=== PATIENT | female | born 1975 | race African-American/Black ===

== ENCOUNTER 2020-03-10 12:57 | Outpatient (CLI) | payer BC, SELFPAY ==
--- NOTE | 2020-03-10 13:42 | ECG_ITS ---
Measurements Intervals [place] Rate: 76 P: 58 RI: 182 QRS: 36 QRSD: 82 T: 17 QT: 361 QTc: 406 Interpretive Statements SINUS RHYTHM NORMAL ECG Electronically Signed On 03-10-2020 13:58:50 CDT by Michele Centeno D.O.
== END 2020-03-10 12:58 | disposition home or self-care (01) ==
PROVIDERS: Visit Provider Anesthesiology
DX: E78.00 Pure hypercholesterolemia, unspecified (principal)
CPT/HCPCS: 93005

== ENCOUNTER 2020-03-11 07:55 | Outpatient (RCR) | payer BC, SELFPAY ==
[2020-03-10 13:19] LABS: Hematocrit 21.6 % (37.0-47.0)
[2020-03-10 13:22] LABS: Hemoglobin 5.6 g/dL (12.0-15.0)
[2020-03-11] VITALS (9 sets, daily range): BP systolic 119–144; BP diastolic 69–91; PULSE 84–94; RESP 12–16; TEMP 36.9–37.6; O2SAT 100
[2020-03-11] MEDS: ACETAMINOPHEN 325 MG TABLET 650 MG PO (08:55)
--- NOTE | 2020-03-11 09:19 | PC.NURSE ---
0900-As this is the first time pt has received blood, orders received from MD for medications and blood began at less than half of the normal starting rate (30 ml/hr) to insure any problems are caught early. No itching or other adverse reactions noted by pt. Will continue to monitor.
== END 2020-06-08 23:59 | disposition home or self-care (01) ==
LOC: ANHCPCTRAN 07:55
PROVIDERS: Visit Provider Obstetrics & Gynecology
DX: D50.9 Iron deficiency anemia, unspecified (principal)
CPT/HCPCS: 36415; 36430; 85014; 85018; 86850; 86900; 86901; 86920; A9270; P9016

== ENCOUNTER 2020-03-15 14:02 | Outpatient (CLI) | payer BC, SELFPAY ==
[2020-03-15 14:22] LABS: Hematocrit 30.8 % (37.0-47.0); Hemoglobin 8.7 g/dL (12.0-15.0)
== END 2020-03-15 14:03 | disposition home or self-care (01) ==
PROVIDERS: Referring Provider Obstetrics & Gynecology; Visit Provider Anesthesiology
DX: D50.9 Iron deficiency anemia, unspecified (principal)
CPT/HCPCS: 36415; 85014; 85018

== ENCOUNTER 2020-03-17 00:17 | Outpatient (CLI) | payer BC, SELFPAY ==
[2020-03-17 17:33] LABS: SARS-CoV-2 RNA PCR Negative
== END 2020-03-17 00:18 | disposition home or self-care (01) ==
LOC: ANHCOVIDDT 00:17
PROVIDERS: Visit Provider Obstetrics & Gynecology
DX: Z01.812 Encounter for preprocedural laboratory examination (principal); Z20.828 Contact with and (suspected) exposure to other viral communicable diseases
CPT/HCPCS: 87635; C9803; U0003

== ENCOUNTER 2020-03-29 15:02 | Outpatient (CLI) | payer BC, SELFPAY ==
[2020-03-29 15:47] LABS: Hematocrit 32.9 % (37.0-47.0); Hemoglobin 9.7 g/dL (12.0-15.0)
== END 2020-03-29 15:03 | disposition home or self-care (01) ==
PROVIDERS: Visit Provider Obstetrics & Gynecology
DX: D64.9 Anemia, unspecified (principal)
CPT/HCPCS: 36415; 85014; 85018

== ENCOUNTER 2020-03-31 00:35 | Outpatient (CLI) | payer BC, SELFPAY ==
[2020-03-31 17:34] LABS: SARS-CoV-2 RNA PCR Negative
== END 2020-03-31 00:36 | disposition home or self-care (01) ==
LOC: ANHCOVIDDT 00:35
PROVIDERS: Visit Provider Obstetrics & Gynecology
DX: Z01.812 Encounter for preprocedural laboratory examination (principal); Z11.59 Encounter for screening for other viral diseases
CPT/HCPCS: 87635; C9803; U0003

== ENCOUNTER 2020-04-02 16:31 | Inpatient (IN) | payer BC, SELFPAY ==
[2020-03-09 10:07] VITALS: BMI 31.7
--- NOTE | 2020-03-09 16:10 | PC.NURSE ---
1000: Patient has chronic anemia and has a scheduled blood transfusion on 03-11-2020. Patient instructed to get an H&H and type and screen done after her transfusion for surgery.
[2020-04-02] VITALS (18 sets, daily range): BP systolic 102–126; BP diastolic 63–91; PULSE 77–109; RESP 10–25; TEMP 36.8–37; O2SAT 96–100
--- NOTE | 2020-04-02 07:44 | WPDANESEPPF ---
Anes - Initial Pre Proc Eval Procedure: Operation Date: 04/02/20 13:00 Proposed Procedures p Total Abdominal Hysterectomy - Ranjeet Kaminski MD Date/Time: 04/02/20 07:44 Surgeon: Ranjeet Kaminski MD Pre Op Diagnosis: Uterine Fibroids Patient Data Age: 45 Gender: F Height: 1.63 m Weight: 83.91 kg Allergies Allergy/AdvReac Type Severity Reaction Status Date / Time No Known Allergies Verified 03/26/20 13:42 Home Medications Medication Instructions Recorded Confirmed Type cholecalciferol (vitamin D3) 125 mcg PO DAILY 03/09/20 03/26/20 History [Vitamin D3] iron,carbon,[id number] 1 tablet PO DAILY 03/09/20 03/26/20 History [Ferralet 90 Dual-Iron Delivery] levothyroxine 125 mcg PO DAILY 03/09/20 03/26/20 History pravastatin 20 mg PO HS 03/09/20 03/26/20 History ECG: Date of Service: 03/10/20 Procedure(s): CA 12 lead EKG Accession Number(s): [id number] cc: ~ Measurements Intervals [place] Rate: 76 P: 58 NV: 182 QRS: 36 QRSD: 82 T: 17 QT: 361 QTc: 406 Interpretive Statements SINUS RHYTHM NORMAL ECG Electronically Signed On 03-10-2020 13:58:50 CDT by Michele Centeno D.O. Dictated By: Michele Centeno DO 03/10/20 1349 Patient hx anesthesia problems: none Family hx anesthesia problems: none PMFSH Past Medical History Medical History (Updated 04/02/20 @ 07:45 by Tray Jeffery MD) Abnormal uterine bleeding Anemia Endometriosis Hypercholesterolemia Hypothyroidism Obesity Social History Social History Smoking status: Never smoker Gender identity (if verbalized by the patient): Female Spiritual care concerns: No Anes - Eval Final PreProcedure Day of Procedure 04/02/20 07:44 Patient weight: obese Heart: regular rate and rhythm Lungs: clear to auscultation and normal air movement Airway: Mallampati scale class II Neurological: alert and oriented Last oral intake: >/= 8 hours ASA classification: III Emergent: no Anesthetic plan: proceed Anesthesia type and monitoring: general ETT Informed Consent: The patient's anesthetic plan and its attendant risks and benefits were discussed with the patient/family/POA. Questions were solicited and answers provided to the satisfaction of the patient/family/POA.
--- NOTE | 2020-04-02 11:51 | PM.IMHP ---
H&P: HPI History of Present Illness Chief complaint: Uterine Fibroids Narrative: Jennifer Painting is a 45 year old female A3 with a long history of fibroids, menorrhagia and anemia. Patient s/p recent blood transfusion 3 weeks ago and iron infusion. no bleeding since. Review of Systems Constitutional: Constitutional: Reports fatigue and Reports lethargy Gastrointestinal: Gastrointestinal: Reports bloating PMFSH Past Medical History Medical History (Updated 04/02/20 @ 11:55 by Ranjeet Kaminski MD) Abnormal uterine bleeding Anemia Ectopic Endometriosis Fibroids Hypercholesterolemia Hypothyroidism Obesity Surgical History Surgical History History of laparoscopy Status post myomectomy Social History Social History Smoking status: Never smoker Gender identity (if verbalized by the patient): Female Spiritual care concerns: No Meds Home Medications and Allergies Home Medications Medication Instructions Recorded Confirmed Type cholecalciferol (vitamin D3) 125 mcg PO DAILY 03/09/20 03/26/20 History [Vitamin D3] iron,carbon,[id number] 1 tablet PO DAILY 03/09/20 03/26/20 History [Ferralet 90 Dual-Iron Delivery] levothyroxine 125 mcg PO DAILY 03/09/20 03/26/20 History pravastatin 20 mg PO HS 03/09/20 03/26/20 History Allergies Allergy/AdvReac Type Severity Reaction Status Date / Time No Known Allergies Verified 03/26/20 13:42 Exam Const: General: no acute distress Resp: Auscultation: clear to auscultation bilaterally GI: Other: uterus at umbilicus : External Female Exam: normal external appearance Assessment and Plan Assessment and plan (1) Endometriosis: Code(s): N80.9 - Endometriosis, unspecified Status: Acute (2) Fibroids: Code(s): D21.9 - Benign neoplasm of connective and other soft tissue, unspecified Status: Acute Assessment and Plan: scheduled for an abdominal hysterectomy. Risk and benefits reviewed with patient including and no limited to bleeding infection trauma to surrounding organs, anesthesia.
[2020-04-02 12:14] LABS: Hematocrit 35.7 % (37.0-47.0); Hemoglobin 10.4 g/dL (12.0-15.0)
[2020-04-02] MEDS: ceFAZolin 2 GM/D5W 50 ML 2 GM/50 ML BAG IVPB (12:51)
[2020-04-02] MEDS: LACTATED RINGERS 1,000 ML 30 ML IV CONT ×3 (16:26→18:54)
[2020-04-02 17:00] LABS: Hemoglobin 7.3 g/dL (12.0-15.0)
--- NOTE | 2020-04-02 18:21 | SUR.PHASEI ---
1814 DR. ADAMES CALLED ON CELL TO REPORT LABS.
--- NOTE | 2020-04-02 18:28 | SUR.PHASEI ---
182 DR. ADAMES PAGED RE: LAB RESULTS. 1827 DR. ADAMES CELL CALLED RE: LAB RESULTS.
--- NOTE | 2020-04-02 18:45 | SUR.PHASEI ---
DR. MAYO CALLED AND OKAY'D FOR PT TO GO TO THE FLOOR; NO INTERVENTIONS ORDERED.
--- NOTE | 2020-04-02 19:05 | SUR.PHASEI ---
[employer] [employer]INCIPAL CALLED PT'S PAIN -05/17; TOLD MAY CONTINUE GIVING DILAUDID TO MAX OF 2 MG.
--- NOTE | 2020-04-02 19:35 | OBPPTRN ---
Patient transferred to post room #291 via bed. Support person present. Oriented to unit, room, information board, rooming in, admission packet and security measures. Patient verbalizes understanding.
[2020-04-02] MEDS: DEXTROSE 5%/0.45% SOD CHL 1,000 ML 125 ML IV CONT (20:10)
[2020-04-02] MEDS: SENNA/DOCUSATE SODIUM TABLET 2 TAB PO (22:14)
[2020-04-03] MEDS: IBUPROFEN 600 MG TABLET PO ×3 (03:37→19:32)
[2020-04-03] MEDS: SIMETHICONE 80 MG TAB.CHEW PO ×7 (03:40→22:44)
[2020-04-03 04:44] VITALS: BP 98/57; PULSE 96; RESP 18; TEMP 37
[2020-04-03 07:11] VITALS: BP 102/55; PULSE 105; PULSE 96; RESP 16; RESP 18; TEMP 37.4; O2SAT 96; O2SAT 98
[2020-04-03] MEDS: LEVOTHYROXINE SODIUM 125 MCG TABLET PO (07:11)
--- NOTE | 2020-04-03 09:31 | WPDANESPN ---
Anes - Prog Note Post-Op Date/Time: 04/03/20 09:31 Cardiovascular status: normal Respiratory status: normal Airway patency: baseline Mental status: baseline Post-Op hydration status: normal Vital Signs: Last Vital Signs Temp 37.0 C 04/03/20 04:44 Pulse 96 04/03/20 04:44 Resp 18 04/03/20 04:44 BP 98/57 L 04/03/20 04:44 Pulse Ox 96 04/02/20 19:10 Pain Score (VAS): 0/10. Patient resting in bed at time of assessment. Pain relief with PRN meds. Support person at bedside. I/O: Intake & Output 04/02/20 04/03/20 04/03/20 23:59 07:59 15:59 Intake Total 1000 600 Output Total 400 950 Balance 600 -350 Laboratory Tests 04/02/20 16:49 04/02/20 04/02/20 04/02/20 11:30 11:30 16:49 Hgb 10.4 L 7.3 L D Hct 35.7 L 25.0 L Blood Type O Positive Antibody Screen Negative Post-procedural complaints: none Patient Feedback: Patient satisfied with anesthetic care.
--- NOTE | 2020-04-03 10:39 | PM.GYNPNOP ---
DRIVER OPERATOR - A/P Postoperative Procedures: Procedures Operation Date: 04/02/20 13:00 Actual Procedures Side Surgeon p Total Abdominal Hysterectomy w/ extensive lysis of adhesions, bilateral salpingectomy, right oopherectomy Not Applicable Ranjeet Kaminski MD Postoperative day: 1 Postoperative status: doing well and anemia (Hb last pm 7.3 (prior to surg 10 but had been 5-6 for months without sx)) Postoperative plan: routine post-op care and other (H/H attempted at 5:30 but not done due to nausea; instruced RN to draw now at 10:30) Time Spent With Patient Time: Total time spent is greater than 50% in coordination of care (as documented) at patient's floor/unit and/or counseling patient: Time with patient: less than 15 minutes DRIVER OPERATOR- PN:Subj Post-Op Subjective Date/time seen: 04/03/20 10:39 Subjective: patient reports feeling better, pain is well controlled and patient reports nausea Exam GI: Other: abdomen soft, nt, nd bandage removed inc c/d/i with minimal oozing at base DRIVER OPERATOR - PN: Obj Data Vital Signs Vital Signs: Vital Signs - 24 hr 04/02/20 12:37 04/02/20 16:26 04/02/20 16:50 Temperature 98.3 F Pulse Rate 78 96 80 Respiratory Rate 18 12 16 Blood Pressure 108/89 109/73 114/69 Pulse Oximetry 100 100 100 04/02/20 17:05 04/02/20 17:24 04/02/20 17:35 Temperature Pulse Rate 96 77 92 Respiratory Rate 17 17 13 Blood Pressure 102/63 102/63 115/68 Pulse Oximetry 99 100 100 04/02/20 17:56 04/02/20 18:10 04/02/20 18:25 Temperature Pulse Rate 98 92 94 Respiratory Rate 19 11 L 22 H Blood Pressure 118/71 118/77 124/91 H Pulse Oximetry 100 97 96 04/02/20 18:40 04/02/20 18:55 04/02/20 19:10 Temperature Pulse Rate 109 H 107 H 109 H Respiratory Rate 25 H 19 10 L Blood Pressure 126/86 122/81 119/77 Pulse Oximetry 96 97 96 04/02/20 20:07 04/02/20 20:15 04/02/20 20:30 Temperature 98.6 F Pulse Rate 97 98 94 Respiratory Rate 17 Blood Pressure 112/78 122/83 120/85 Pulse Oximetry 04/02/20 21:00 04/02/20 22:00 04/02/20 23:00 Temperature 98.4 F Pulse Rate 107 H 105 H 88 Respiratory Rate 16 Blood Pressure 120/81 112/79 110/72 Pulse Oximetry 04/03/20 04:44 Temperature 98.6 F Pulse Rate 96 Respiratory Rate 18 Blood Pressure 98/57 L Pulse Oximetry Intake/Output Intake/Output: Intake & Output 03/31/20 04/01/20 04/02/20 04/03/20 23:59 23:59 23:59 23:59 Intake Total 1050 600 Output Total 400 950 Balance 650 -350 Meds/Results Medications: Active Medications Generic Name Dose Route Start Last Admin Trade Name Freq PRN Reason Stop Dose Admin Hydrocodone Bitart/Acetaminophen 1 tab 04/02/20 16:31 04/03/20 10:34 [place] 5-325 Mg PO 1 tab Q3H PRN Administration Pain Rated 5 or Less Hydrocodone Bitart/Acetaminophen 1 tab 04/02/20 16:31 [place] 10-325 Mg PO Q3H PRN Pain Rated 6 or Greater Fentanyl Citrate 25 mcg 04/02/20 07:30 04/02/20 18:30 Sublimaze IV PUSH 25 mcg Q2M PRN Administration Pain Hydromorphone HCl 0.25 mg 04/02/20 07:30 04/02/20 19:05 Dilaudid Inj IV PUSH 0.25 mg Q5M PRN Administration Pain Lactated Ringer's 1,000 mls @ 30 mls/hr 04/02/20 07:30 04/02/20 16:26 Lr - Lactated Ringers Iv IV CONT 30 mls/hr .Q24H AGGIE Administration Lactated Ringer's 1,000 mls @ 30 mls/hr 04/02/20 07:30 04/02/20 18:54 Lr - Lactated Ringers Iv IV CONT 30 mls/hr .Q24H AGGIE Administration Dextrose/Sodium Chloride 1,000 mls @ 125 mls/hr 04/02/20 16:35 04/02/20 20:10 Dextrose 5% Sodium Chloride 0.45% IV CONT 125 mls/hr .Q8H AGGIE Administration Ibuprofen 600 mg 04/02/20 16:31 04/03/20 03:37 Motrin PO 600 mg Q6H PRN Administration Cramping Levothyroxine Sodium 125 mcg 04/03/20 06:30 04/03/20 07:11 Synthroid PO 125 mcg DAILY@0630 AGGIE Administration Morphine Sulfate 4 mg 04/02/20 16:31 Morphine Sulfate Inj IV PUSH Q4H PRN Severe breakthrough
[2020-04-03 11:25] LABS: Basophils Percent Auto 0.1 % (0.2-1.2); Hematocrit 21.4 % (37.0-47.0); Immature Granulocyte Absolute 0.05 K/mm3 (0.00-0.031); Immature Granulocyte Percent A 0.4 % (0-0.5); Lymphocytes Absolute Auto 0.96 K/mm3 (0.9-3.2); Lymphocytes Percent Auto 7.8 % (18.3-44.2); Mean Corpuscular HGB Conc 29.4 g/dl (32-36); Mean Corpuscular Hemoglobin 22.9 pg (26-34); Mean Corpuscular Volume 77.8 fl (80-100); Mean Platelet Volume 10.5 fl (7.4-10.4); Monocytes Absolute Auto 0.8 K/mm3 (0.1-0.6); Monocytes Percent Auto 6.7 % (2.6-8.5); Neutrophils Absolute Auto 10.5 K/mm3 (1.3-6.7); Platelet Count Result 238 k/mm3 (150-375); Red Blood Count 2.75 M/mm3 (4.2-5.4); Red Cell Distribution Width 26.2 % (11.5-14.5); White Blood Count 12.3 K/mm3 (4.5-10.0)
[2020-04-03 11:26] LABS: Potassium 3.8 mmol/L (3.4-5.0)
[2020-04-03 11:35] LABS: Hemoglobin 6.3 g/dL (12.0-15.0)
[2020-04-03 11:41] LABS: Blood Urea Nitrogen 8 mg/dL (7-17); Calcium 8.1 mg/dL (8.4-10.2); Carbon Dioxide 26 mmol/L (22-30); Chloride 103 mmol/L (98-107); Estimated CRCL calculation 80 ml/min; Estimated Glomerular Filt Rate > 60; Glucose 126 mg/dL (65-105); Sodium 132 mmol/L (137-145)
[2020-04-03 12:40] LABS: Hypochromasia 3+ (NORMAL)
[2020-04-03 12:41] LABS: Ovalocytes 2+ (NORMAL); Platelet Estimate Adequate (Adequate)
[2020-04-03 16:30] VITALS: BP 110/66; PULSE 81; RESP 16; TEMP 37.1; O2SAT 98
[2020-04-03] MEDS: POLYSACCHARIDE IRON COMPLEX 150 MG CAPSULE PO (16:30)
--- NOTE | 2020-04-03 19:17 | PC.NURSE ---
1130 pt wants to try to get up to bathroom. Sat her on the side of bed. She felt light headed and dizzy. Called out for assistance from another RN. Laid pt back down in bed. VS @ 1135 B/P 92/51, HR 86, PO2 100. Applied a cool washcloth to neck. She started to feel better. Informed pt that she should eat and we would try again later with the [employer]. She V/D'd. VS @ 1145 B/P 105/65, HR 88, PO2 96 1330 used [employer] to transport pt to the Bathroom she was weak but did well. She voided but missed the hat there was 100ccs in the hat. returned her to bed and she is resting well. 1600 Used [employer] again to the bathroom. Pt did much better this time. She voided and missed the hat again. Returned her to bed she is resting well.
[2020-04-03 19:35] VITALS: BP 112/72; PULSE 91; RESP 16; TEMP 37.4; O2SAT 100
[2020-04-03] MEDS: SENNA/DOCUSATE SODIUM TABLET 2 TAB PO (22:44)
[2020-04-04] MEDS: IBUPROFEN 600 MG TABLET PO ×2 (01:35→08:04)
[2020-04-04] MEDS: SIMETHICONE 80 MG TAB.CHEW PO ×3 (01:35→08:05)
--- NOTE | 2020-04-04 03:50 | PM.GYNPNOP ---
HEADING MAKER - A/P Assessment and plan (1) Anemia: Code(s): D64.9 - Anemia, unspecified Status: Chronic Assessment and Plan: continue iron BID for next 2 months tolerating without dizziness declines transfusion Postoperative Procedures: Procedures Operation Date: 04/02/20 13:00 Actual Procedures Side Surgeon p Total Abdominal Hysterectomy w/ extensive lysis of adhesions, bilateral salpingectomy, right oopherectomy Not Applicable Ranjeet Kaminski MD Postoperative day: 2 Postoperative status: doing well Postoperative plan: routine post-op care and discharge Time Spent With Patient Time: Total time spent is greater than 50% in coordination of care (as documented) at patient's floor/unit and/or counseling patient: Time with patient: less than 15 minutes HEADING MAKER- PN:Subj Post-Op Subjective Date/time seen: 04/04/20 03:50 Subjective: patient reports feeling better, patient has no complaints, pain is well controlled and patient is tolerating oral intake Exam GI: Other: inc c/d/i nt, nd HEADING MAKER - PN: Obj Data Vital Signs Vital Signs: Vital Signs - 24 hr 04/03/20 04:44 04/03/20 07:11 04/03/20 16:30 Temperature 98.6 F 99.3 F 98.7 F Pulse Rate 96 96 81 Respiratory Rate 18 18 16 Blood Pressure 98/57 L 102/55 L 110/66 Pulse Oximetry 96 98 04/03/20 19:35 Temperature 99.4 F Pulse Rate 91 Respiratory Rate 16 Blood Pressure 112/72 Pulse Oximetry 100 Intake/Output Intake/Output: Intake & Output 04/01/20 04/02/20 04/03/20 04/04/20 23:59 23:59 23:59 23:59 Intake Total 1050 1100 300 Output Total 400 1600 Balance 650 -500 300 Meds/Results Medications: Active Medications Generic Name Dose Route Start Last Admin Trade Name Freq PRN Reason Stop Dose Admin Hydrocodone Bitart/Acetaminophen 1 tab 04/02/20 16:31 04/04/20 01:35 [place] 5-325 Mg PO 1 tab Q3H PRN Administration Pain Rated 5 or Less Hydrocodone Bitart/Acetaminophen 1 tab 04/02/20 16:31 [place] 10-325 Mg PO Q3H PRN Pain Rated 6 or Greater Fentanyl Citrate 25 mcg 04/02/20 07:30 04/02/20 18:30 Sublimaze IV PUSH 25 mcg Q2M PRN Administration Pain Hydromorphone HCl 0.25 mg 04/02/20 07:30 04/02/20 19:05 Dilaudid Inj IV PUSH 0.25 mg Q5M PRN Administration Pain Lactated Ringer's 1,000 mls @ 30 mls/hr 04/02/20 07:30 04/02/20 16:26 Lr - Lactated Ringers Iv IV CONT 30 mls/hr .Q24H AGGIE Administration Lactated Ringer's 1,000 mls @ 30 mls/hr 04/02/20 07:30 04/02/20 18:54 Lr - Lactated Ringers Iv IV CONT 30 mls/hr .Q24H AGGIE Administration Dextrose/Sodium Chloride 1,000 mls @ 125 mls/hr 04/02/20 16:35 04/02/20 20:10 Dextrose 5% Sodium Chloride 0.45% IV CONT 125 mls/hr .Q8H AGGIE Administration Ibuprofen 600 mg 04/02/20 16:31 04/04/20 01:35 Motrin PO 600 mg Q6H PRN Administration Cramping Levothyroxine Sodium 125 mcg 04/03/20 06:30 04/03/20 07:11 Synthroid PO 125 mcg DAILY@0630 AGGIE Administration Morphine Sulfate 4 mg 04/02/20 16:31 Morphine Sulfate Inj IV PUSH Q4H PRN Severe breakthrough pain Naloxone HCl 0.1 mg 04/02/20 16:31 Narcan IV PUSH Q2M PRN Respiratory rate less than 10 Ondansetron HCl 4 mg 04/02/20 07:30 Zofran Inj IV PUSH ONCE PRN Nausea Ondansetron HCl 4 mg 04/02/20 16:31 Zofran Inj IV PUSH Q6H PRN Nausea And Vomiting Polysaccharide Iron Complex 150 mg 04/03/20 17:00 04/03/20 16:30 Niferex-150 PO 150 mg BIDWM AGGIE Administration Senna/Docusate Sodium 2 tab 04/02/20 21:00 04/03/20 22:44 Senokot S Tablet PO 2 tab HS AGGIE Administration Simethicone 80 mg 04/02/20 16:31 04/04/20 01:35 Mylicon PO 80 mg Q2H PRN Administration Gas Labs CBC & Chem 7: 04/03/20 11:08 04/03/20 11:07 Labs: Laboratory Results - last 24 hr 04/03/20 04/03/20 11:07 11:08 WBC 12.3 H RBC 2.75 L
--- NOTE | 2020-04-04 03:52 | P.DS_ITS ---
DS: Admitting Diagnosis Admitting Diagnosis Admitting Diagnosis: Fibroid uterus with menorrhagia causing severe anemia DS: Discharge Diagnosis Discharge Diagnosis (1) S/P total abdominal hysterectomy: Code(s): Z90.710 - Acquired absence of both cervix and uterus Status: Acute Assessment and Plan: extensive adhesiolysis (2) Anemia: Code(s): D64.9 - Anemia, unspecified Status: Chronic DS: Summary Hospital Course Hospital Course: progressing to regular diet, voiding, and ambulating Status at Discharge Functional status at discharge: independent ambulation Overall status at discharge: patient is progressing back to baseline Time Spent with Patient Time attestation: Total time spent providing and/or coordinating discharge services: Exam GI: Inspection: normal to inspection and other (inc c/d/i) DS: Data Data Completed and Pending Pending studies at discharge: Pending at discharge 04/02/20 15:51 Surgical [PTH] Routine Labs on day of discharge: Labs from last 24 hours 04/03/20 04/03/20 11:08 11:07 WBC 12.3 H RBC 2.75 L Hgb 6.3 L* Hct 21.4 L MCV 77.8 L MCH 22.9 L MCHC 29.4 L RDW 26.2 H Plt Count 238 MPV 10.5 H Immature Gran % (Auto) 0.4 Neut % (Auto) 85.0 H Lymph % (Auto) 7.8 L [place] % (Auto) 6.7 Eos % (Auto) 0.0 Baso % (Auto) 0.1 L Lymph # (Auto) 0.96 [place] # (Auto) 0.8 H Eos # (Auto) 0.0 Baso # (Auto) 0.0 Abs Immat Gran (auto) 0.05 H Absolute Neuts (auto) 10.5 H Absolute Nucleated RBC 0.0 Nucleated RBC % 0.0 Platelet Estimate Adequate Hypochromasia 3+ Ovalocytes 2+ Sodium 132 L Potassium 3.8 Chloride 103 Carbon Dioxide 26 BUN 8 Creatinine 0.80 Estim Creat Clear Calc 80 Estimated GFR > 60 Glucose 126 H Calcium 8.1 L Discharge Plan Discharge Patient Disposition: Home, Self-Care Discharge Instructions: pelvic rest keep incision clean and dry no driving x 2 weeks Follow-up/Referrals: Ranjeet Kaminksi MD [Physician] - Other (follow up 10 days post op) Discharge Medications: New hydrocodone-acetaminophen 5-325 mg Tablet 1 tab PO Q3H PRN (Reason: Pain Rated 5 Or Less) Qty: 40 RF: 0 Continued levothyroxine 125 mcg tablet 125 mcg PO DAILY RF: 0 Ferralet 90 Dual-Iron Delivery 90-1-12-50 lc-be-[id number]-mg Tablet 1 tablet PO DAILY RF: 0 pravastatin 20 mg Tablet 20 mg PO HS RF: 0 cholecalciferol (vitamin D3) [Vitamin D3] 125 mcg (5,000 unit) Tablet 125 mcg PO DAILY RF: 0 Primary Care Provider: PHYSICIAN NOT ON STAFF,NONSTAFF Attending physician on admission: Ranjeet Kaminski
--- NOTE | 2020-04-04 08:01 | PC.NURSE ---
Called pharmacy to send up Synthroid 0630 dose.
[2020-04-04 08:05] VITALS: BP 114/71; PULSE 91; RESP 18; TEMP 36.8; O2SAT 99
[2020-04-04] MEDS: POLYSACCHARIDE IRON COMPLEX 150 MG CAPSULE PO (08:05)
[2020-04-04] MEDS: LEVOTHYROXINE SODIUM 125 MCG TABLET PO (08:21)
--- NOTE | 2020-04-04 12:48 | PM.PROC ---
Procedure Note - Detailed Date of procedure: 04/02/20 Pre-op diagnosis: Uterine Fibroids uterine fibroids, extensive pelvic adhesions Post-op diagnosis: same Procedure performed: extensive lysis of adhesions of approximately 1 hour Description of procedure: I was consulted intraoperatively by Dr. Kaminski for extensive pelvic adhesions encountered during planned hysterectomy. Dr. Jones had already come to the room and did approximately 10 minutes of lysis of adhesions prior to my arrival. Once I scrubbed in, I noted extensive adhesions of both small intestine and colon to the uterus. The uterus was noted to be very enlarged and fibrotic, as well as contain multiple large fibroids. Began by taking down the small intestine adhesions that were stuck superiorly and anterior to the uterus. This was done with both blunt and sharp dissection. Once this was taken down, I worked posteriorly and noted more small bowel adhesions that were carefully taken down. In the left lower quadrant, the sigmoid colon was adhered and these adhesions were slowly taken down as well. On the right side, there was noted to be some small bowel and cecum adhered. Again these adhesions were taken down both bluntly and sharply. Once all adhesions were taken down, I was able to completely mobilize the uterus as well as both tubo-ovarian structures. The lysis of adhesions took approximately 1 hour. At this point, Dr. Kaminski resumed her planned hysterectomy. Of note, I did examine the small bowel and colon and no iatrogenic injury was apparent. Anesthesia: GETA Surgeon: Lenka Liu MD Estimated blood loss (mL): 200 Drains: No Packing: No Pathology: yes Complications: No immediate complications Condition: stable Disposition: PACU Findings: extensive pelvic adhesions to the uterus involving both small intestine and colon
--- NOTE | 2020-04-26 17:48 | OP_ITS ---
DATE OF PROCEDURE: 04/02/2020 PREOPERATIVE DIAGNOSES: Uterine fibroids, severe anemia, menorrhagia. POSTOPERATIVE DIAGNOSES: Uterine fibroids, extensive pelvic adhesions, menorrhagia, and severe anemia. PROCEDURE PERFORMED: Total abdominal hysterectomy with bilateral salpingectomy and extensive lysis of adhesions with Dr. Jones and Dr. Liu. DESCRIPTION OF PROCEDURE: The patient was taken to the operating room with IV running. She was prepped and draped in a normal sterile fashion. Placed in a supine position. A vertical midline incision was made and fascia was divided. Upon entering of the fascia, noted that the uterus was adhered to the abdominal wall. Careful dissection was made to dissect the uterus from the abdominal wall with Metzenbaum scissors with sharp and blunt dissection. After freeing the anterior portion of the abdominal wall, uterus was noted to have adhesions of the small bowel and large bowel and fine adhesion on the superior, posterior, left and right side gudino. At this time, general surgeon was called in for assistance with dissection of small bowel from the uterus. Please see op note from general surgeon. The uterus was freed and the uterus was exteriorized. The retroperitoneal spaces were opened by incision lateral and parallel to the infundibulopelvic ligament. The round ligaments were isolated, divided, and ligated. The peritoneum overlying this vesicouterine fold was incised to mobilize the bladder. Retroperitoneal spaces were then opened allowing exposure of pelvic vessels. The infundibulopelvic ligaments were isolated, divided, and doubly ligated removing the tubes along with dissection. Uterine artery pedicles were skeletonized, clamped, divided, and suture ligated. Additional pedicles were developed on each side of the pelvis, after which tissue was divided and suture ligated. At this time, with better visualization, the uterus was amputated and handed off. The base of the cervix was then reached and the vagina was clamped and divided allowing removal of the cervix and handed off. Angle stitches of 0 Vicryl sutures were placed incorporating the uterosacral ligaments and the vaginal vault was closed with a running locked stitch. The pelvis was irrigated copiously and excellent hemostasis noted. The abdomen was then examined, the muscles and fascia gudino were examined for hemostasis. The fascia wall was closed with a running Smead Desai closure with #1 permanent monofilament suture. Subcutaneous tissues were irrigated. The fascia was closed with a running stitch and the skin was closed with deb. The sponge, lap, and needle count and instrument counts were correct x2. The patient was taken to recovery room in stable condition. D I MT: Adama
--- NOTE | 2020-05-14 14:15 | PM.PROC ---
Procedure Note - Detailed Date of procedure: 05/14/20 Pre-op diagnosis: Uterine Fibroids Surgeon: Endy Jones MD Late entry for operative note. Date:04/02/2020 Date of procedure: 04/02/20 Pre-op diagnosis: Uterine Fibroids uterine fibroids, extensive pelvic adhesions Post-op diagnosis: same Procedure performed: extensive lysis of adhesions Dr. Kaminski: Asked for help. Dr. Liu was on-call but until he got there, for approximately 10 minutes, I entered the room, scrubbed, and helped Dr. herrera with lysis of adhesions between the small bowel and the upper portion of the very large uterus. Blunt sharp and dissection was used and no enterotomies occurred. I left through when Dr. Liu arrived. Please see his operative note for the completion of this procedure note. Anesthesia: GETA Surgeon: Lenka Liu MD (for 10 min, Dr Nikolas Jones MD FACS Estimated blood loss (mL): 200 Drains: No Packing: No Pathology: yes Complications: No immediate complications Condition: stable Disposition: PACU Findings: extensive pelvic adhesions to the uterus involving both small intestine and colon
== END 2020-04-04 13:10 | disposition home or self-care (01) | DRG 743 ==
LOC: ANHSURGERY 16:38 → ANHOB2 19:39 → ANHSURGERY 04-07 08:58 → ANHOB2 04-07 09:22
PROVIDERS: Admitting Provider Obstetrics & Gynecology; Visit Provider Obstetrics & Gynecology Gynecology
PROC: 0UT94ZZ Resection of Uterus, Percutaneous Endoscopic Approach (ICD-10-PCS; principal; 2020-04-02 13:00)
DX: D25.9 Leiomyoma of uterus, unspecified (principal); N73.6 Female pelvic peritoneal adhesions (postinfective); N92.0 Excessive and frequent menstruation with regular cycle; D50.0 Iron deficiency anemia secondary to blood loss (chronic); Z68.30 Body mass index [BMI] 30.0-30.9, adult; E78.00 Pure hypercholesterolemia, unspecified; E03.9 Hypothyroidism, unspecified; E66.9 Obesity, unspecified
CPT/HCPCS: 36415; 80048; 85014; 85018; 85025; 86850; 86900; 86901; 88307; 99199; A9270; J0690; J1100; J1170; J2250; J2405; J2704; J2710; J3010; J7120

== ENCOUNTER → 2020-07-30 13:37 | Outpatient (CLI) | payer BC, SELFPAY ==
--- NOTE | ~2020-07-30 | MM_ITS ---
EXAMINATION: MM screening lora BI w jada HISTORY: Screening mammogram TECHNIQUE: Craniocaudal and mediolateral oblique 3-D tomosynthesis images were obtained and synthetic 2-D images were generated. CAD analysis was submitted and interpreted. COMPARISON: 04/08/2019, 12/10/2017, bilateral digital screening mammogram examinations 12/19/2016 bilateral diagnostic digital mammogram BREAST PARENCHYMAL COMPOSITION: The breasts are heterogeneously dense, which may obscure small masses . FINDINGS: A 7 mm probable intramammary lymph node in the upper outer right breast. 3.5 mm probable benign upper outer quadrant left intramammary lymph node. There is no evidence of sue picious mass, calcification, or architectural distortion to suggest malignancy in either breast. Ther e has been no suspicious interval change. IMPRESSION: 1. No mammographic evidence of malignancy. 2. Recommend routine screening mammography in one year. BI-RADS Category 2: Benign finding(s). Reviewed, dictated and finalized at location A.
== END ==
PROVIDERS: Visit Provider Obstetrics & Gynecology
DX: Z12.31 Encounter for screening mammogram for malignant neoplasm of breast (principal)
CPT/HCPCS: 77063; 77067

== ENCOUNTER → 2021-11-12 09:19 | Outpatient (CLI) | payer BC, SELFPAY ==
--- NOTE | ~2021-11-12 | MM_ITS ---
EXAMINATION: MM screening lora BI w jada HISTORY: Screening TECHNIQUE: Craniocaudal and mediolateral oblique 3-D tomosynthesis images were obtained and synthetic 2-D images were generated. CAD analysis was submitted and interpreted. COMPARISON: Comparison to multiple prior studies sequentially, with oldest reviewed study dated 04/2017. BREAST PARENCHYMAL COMPOSITION: Breast composed of scattered areas of fibroglandular density FINDINGS: There is a new mass in the upper outer quadrant of the left breast which is partially obscu red by fibroglandular tissue. The right breast is stable without evidence for malignancy. IMPRESSION: 1. New left breast mass, upper outer quadrant. 2. Additional mammographic views and possible breast ultrasound are recommended. BI-RADS Category 0: Incomplete: Needs additional imaging evaluation. Reviewed, dictated and finalized at location A. LE PROGRAMMER ANALYST IMPRESSION: 1. New left breast mass, upper outer quadrant. 2. Additional mammographic views and possible breast ultrasound are recommended . BI-RADS Category 0: Incomplete: Needs additional imaging evaluation.
== END ==
PROVIDERS: Visit Provider Obstetrics & Gynecology
DX: Z12.31 Encounter for screening mammogram for malignant neoplasm of breast (principal); R92.8 Other abnormal and inconclusive findings on diagnostic imaging of breast
CPT/HCPCS: 77063; 77067

== ENCOUNTER → 2021-11-30 07:47 | Outpatient (CLI) | payer BC, SELFPAY ==
--- NOTE | ~2021-11-30 | MMUS_ITS ---
EXAMINATION: MM diagnostic lora LT w jada, US breast LT complete HISTORY: New mass in upper outer left breast reported on November 12, 2021 bilateral screening mammogr am TECHNIQUE: Additional 3-D tomosynthesis images of the left breast were performed and synthetic 2-D im ages were generated. CAD analysis was submitted and interpreted. High resolution complete left breast ultrasound including all 4 quadrants and subareolar area of was performed. COMPARISON: November 12, 2021, July 30, 2020, April 08, 2019 bilateral screening mammogram examinatio ns FINDINGS: MAMMOGRAPHIC FINDINGS: There is suggestion of architectural distortion anteriorly in the mid to upper outer left breast. ULTRASOUND: 2:00 4 cm from nipple: 6.5 x 9.5 x 8.3 mm sonolucency with through transmission posterior enhancement consistent with simple cyst 2:00 4 cm from nipple: Adjacent 3.8 x 3.2 x 4.0 mm sonolucency, likely a small cyst 2:00 4 cm from nipple: There is ill-defined irregular hypoechogenicity with posterior shadowing; ultr asound-guided biopsy is recommended. IMPRESSION: 1. No mammographic architectural distortion and sonographic irregular ill-defined hypoechogenicity in posterior shadowing at 2:00 area 2. Ultrasound-guided biopsy is recommended BI-RADS category 4, suspicious findings. Dr. Gaspar telephoned the report and ultrasound-guided biopsy recommendation of left breast at 2:00 on November 30, 2021 at 0916 hours to Triage Department voicemail. Reviewed, dictated and finalized at location A. MOBILE DESIGNER IMPRESSION: 1. No mammographic architectural distortion and sonographic irregular ill-defin ed hypoechogenicity in posterior shadowing at 2:00 area 2. Ultrasound-guided biopsy is recommended BI-RADS category 4, suspicious findings. Dr. Gaspar telephoned the report and ultrasound-guided biopsy recommendation of l eft breast at 2:00 on November 30, 2021 at 0916 hours to Triage Department voic email. IMPRESSION: 1. No mammographic architectural distortion and sonographic irregular ill-defin ed hypoechogenicity in posterior shadowing at 2:00 area 2. Ultrasound-guided biopsy is recommended BI-RADS category 4, suspicious findings. Dr. Gaspra telephoned the report and ultrasound-guided biopsy recommendation of l eft breast at 2:00 on November 30, 2021 at 0916 hours to Triage Department voic email.
== END ==
PROVIDERS: Visit Provider Obstetrics & Gynecology Gynecology
DX: R92.8 Other abnormal and inconclusive findings on diagnostic imaging of breast (principal)
CPT/HCPCS: 76641; 77061; 77065; G0279

== ENCOUNTER 2023-10-15 15:22 | Outpatient (CLI) | payer BC, SELFPAY ==
--- NOTE | ~2023-10-15 | MM_ITS ---
EXAMINATION: MM screening [facility] BI w jada HISTORY: Screening mammogram TECHNIQUE: Craniocaudal and mediolateral oblique 3-D tomosynthesis images were obtained and synthetic 2-D images were generated. CAD analysis was submitted and interpreted. COMPARISON: 11/30/2021, 11/12/2021, 07/27/2020, 04/08/2019 BREAST PARENCHYMAL COMPOSITION: There are scattered areas of fibroglandular density. FINDINGS: Interval biopsy change is noted in the upper outer quadrant of the left breast. There is an obscured cyst at the 2:00 location of the left breast. No suspicious mass, calcification, or archite ctural distortion are identified in either breast to suggest malignancy. There has been no suspicious interval change. IMPRESSION: 1. No mammographic evidence of malignancy. 2. Recommend routine screening mammography in one year. BI-RADS Category 2: Benign finding(s). Reviewed, dictated and finalized at location A. TTING SUPERVISOR
== END 2023-10-15 15:23 ==
LOC: MICIMG 15:23
PROVIDERS: PCP Nurse Practitioner; Visit Provider Nurse Practitioner
DX: Z12.31 Encounter for screening mammogram for malignant neoplasm of breast (principal)
CPT/HCPCS: 77063; 77067

== ENCOUNTER 2024-05-12 15:50 | Outpatient (CLI) | payer OTHER, BC, SELFPAY ==
--- NOTE | ~2024-05-12 | US_ITS ---
EXAMINATION: US pelvic complete DATE: 05/12/2024 16:08 INDICATION: Pelvic pain TECHNIQUE: Multiple transabdominal sonographic images of the pelvis were obtained. COMPARISON: 08/14/2019 FINDINGS: Uterus: Surgically absent. Right Ovary: 5.5 x 3.9 x 5.9 cm. Vascular flow is present. 3.4 cm anechoic, circumscribed, cystic les ion with increased through transmission. Left Ovary: Surgically absent. No adnexal mass There is no free fluid in the pelvis. Normal appearing urinary bladder. IMPRESSION: Status post hysterectomy and left oophorectomy. 3.4 cm simple appearing right ovarian cyst. Reviewed, dictated and finalized at location K. IMPRESSION: Status post hysterectomy and left oophorectomy. 3.4 cm simple appearing right o varian cyst.
== END 2024-05-12 15:51 ==
LOC: MICIMG 15:53
PROVIDERS: PCP Nurse Practitioner; Visit Provider Nurse Practitioner
DX: R10.2 Pelvic and perineal pain (principal); N83.201 Unspecified ovarian cyst, right side
CPT/HCPCS: 76856

== ENCOUNTER 2024-05-29 08:57 | Outpatient (CLI) | payer BC, SELFPAY ==
--- NOTE | ~2024-05-29 | MMUS_ITS ---
EXAMINATION: MM diagnostic lora LT w jada, US breast LT limited HISTORY: Palpable left breast abnormality. TECHNIQUE: Additional 3-D tomosynthesis images of the left breast were performed and synthetic 2-D im ages were generated. CAD analysis was submitted and interpreted. High resolution Limited left breast ultrasound was performed. COMPARISON: Comparison to multiple prior studies sequentially, with oldest reviewed study dated 02/2018 . BREAST PARENCHYMAL COMPOSITION: Not dense: There are scattered areas of fibroglandular density. FINDINGS: MAMMOGRAPHIC FINDINGS: In the upper outer quadrant, middle third there is a developing partially obscured mass with adjacent tissue marker. There are no suspicious calcifications or architectural distortion. ULTRASOUND: Limited left breast ultrasound: There are multiple simple cysts of the left breast at 2 and 3:00, lar gest measuring 1.6 cm at 3:00, 4 cm from the nipple. This corresponds to the mammographic finding. IMPRESSION: 1. No evidence for malignancy in the left breast. Benign findings. 2. Routine yearly screening mammogram and regular clinical breast examination are recommended. BI-RADS Category 2: Benign finding(s). Reviewed, dictated and finalized at location B. IMPRESSION: 1. No evidence for malignancy in the left breast. Benign findings. 2. Routine yearly screening mammogram and regular clinical breast examination a re recommended. BI-RADS Category 2: Benign finding(s).
== END 2024-05-29 08:58 ==
LOC: MICIMG 09:00
PROVIDERS: Visit Provider Nurse Practitioner
DX: N63.20 Unspecified lump in the left breast, unspecified quadrant (principal); R92.2 Inconclusive mammogram
CPT/HCPCS: 76642; 77061; 77065; G0279

== ENCOUNTER 2024-06-27 14:46 | Outpatient (CLI) | payer OTHER, BC, SELFPAY ==
--- NOTE | ~2024-06-27 | US_ITS ---
EXAMINATION: US transvaginal DATE: 06/27/2024 15:20 INDICATION: Right ovarian cyst. Pelvic pain. TECHNIQUE: Multiple transvaginal sonographic images of the pelvis were obtained. COMPARISON: Ultrasound 05/12/2024 FINDINGS: The uterus is absent. There is no free fluid in the pelvis. The right ovary measures 3.9 x 3.2 x 2.0 cm. There is normal vascular flow in right ovary. The left ovary is absent. IMPRESSION: 1. Normal right ovary. 2. Hysterectomy and left oophorectomy. Reviewed, dictated and finalized at location A.
== END 2024-06-27 14:47 | disposition home or self-care (01) ==
LOC: MICIMG 14:47
PROVIDERS: Visit Provider Obstetrics & Gynecology Gynecology
DX: N83.201 Unspecified ovarian cyst, right side (principal)
CPT/HCPCS: 76830